=== PATIENT | male | born 1975 | race African-American/Black ===

== ENCOUNTER 2023-05-26 22:07 | Emergency (ER) | payer OTHER, SELFPAY ==
[2023-05-26] MEDS ORDERED: Ketorolac Tromethamine 30 MG/ML VIAL ONE (23:27)
[2023-05-26] MEDS ORDERED: Acetaminophen 500 MG TAB ONE (23:28)
== END 2023-05-27 00:10 | disposition home or self-care (01) ==
LOC: CSHERS 22:07
DX: S16.1XXA Strain of muscle, fascia and tendon at neck level, initial encounter (principal); I10 Essential (primary) hypertension; X58.XXXA Exposure to other specified factors, initial encounter
CPT/HCPCS: 96372; 99283; J1885

== ENCOUNTER 2025-03-13 14:00 | Emergency (ER) | payer OTHER ==
[2025-03-13] MEDS ORDERED: Acetaminophen 500 MG TAB ONE (15:08)
== END 2025-03-13 16:09 | disposition home or self-care (01) ==
LOC: CSHERS 14:00
DX: S19.9XXA Unspecified injury of neck, initial encounter (principal); I10 Essential (primary) hypertension; V89.2XXA Person injured in unspecified motor-vehicle accident, traffic, initial encounter
CPT/HCPCS: 70450; 72125

== ENCOUNTER 2025-05-17 17:09 | Emergency (ER) | payer OTHER ==
[~2025-05-17 17:09] MED LIST: Iopamidol 370 76% 100 ML VIAL ONE
[2025-05-17 19:24] LABS: #Basophils 0.08 10x3/uL (0.0-0.2); #Eosinophils 0.51 10x3/uL (0.0-0.5); #Monocytes 0.77 10x3/uL (0.0-1.1); #Neutrophils 3.40 10x3/uL (1.5-8.4); %Basophils 1.2 % (0.0-2.0); %Eosinophils 7.7 % (0.0-6.0); %Lymphocytes 27.9 % (18.0-47.0); %Monocytes 11.6 % (0.0-10.0); %Neutrophils 51.4 % (40.0-75.0); Hematocrit 39.2 % (38.8-50.0); Hemoglobin 12.6 g/dL (13.5-17.5); Mean Corpuscular Hemoglobin 28.4 pg (27.0-33.0); Mean Corpuscular Volume 88.5 fL (81.2-95.1); Platelet Count 276 10x3/uL (150-450); Red Blood Cell (RBC) Count 4.43 10x6/uL (4.32-5.72); White Blood Cell (WBC) Count 6.62 10x3/uL (3.5-10.5)
[2025-05-17 19:39] LABS: ALT (SGPT) 32 U/L (Less than 45); AST (SGOT) 32 U/L (11-34); Albumin 3.9 g/dL (3.1-4.5); Alkaline Phosphatase 60 U/L (40-110); Anion Gap 12 mmol/L (10-20); BUN (Urea Nitrogen) 11 mg/dL (8.9-20.6); Bilirubin, Total 0.2 mg/dL (0.3-1.2); Calc. Creatinine Clearance 0 mL/min (70-130); Calcium 8.9 mg/dL (7.8-10.44); Carbon Dioxide 32 mmol/L (22-29); Chloride 101 mmol/L (98-107); Globulin 3.2 g/dL (2.4-3.5); Glucose 82 mg/dL (70-105); Potassium 3.9 mmol/L (3.5-5.1); Sodium 141 mmol/L (136-145)
[2025-05-17 19:45] LABS: Troponin I 0.010 ng/mL (< 0.028)
== END 2025-05-17 22:11 | disposition home or self-care (01) ==
LOC: CSHERS 17:09
DX: M79.641 Pain in right hand (principal); M79.89 Other specified soft tissue disorders; I10 Essential (primary) hypertension; Z79.899 Other long term (current) drug therapy
CPT/HCPCS: 36415; 71045; 71275; 80053; 83880; 84484; 84550; 85025; 85379; 93005; 94760; Q9967